=== PATIENT | male | born 2000 | race Caucasian/White ===

== ENCOUNTER 2021-08-22 18:43 | Emergency (ER) | payer BC ==
[2021-08-22] MEDS: Amoxicillin 500 MG Cap PO ONE (19:39)
== END 2021-08-22 19:43 | disposition home or self-care (01) ==
LOC: FB.ED 18:43
DX: K04.7 Periapical abscess without sinus (principal)
CPT/HCPCS: 99281; 99282; A9270-GY

== ENCOUNTER 2021-09-11 14:50 | Emergency (ER) | payer BC ==
[2021-09-11 16:00] LABS: STREP A BY PCR NOT DETECTED (NOT DETECT)
[2021-09-11 16:11] LABS: CORONAVIRUS COVID-19 NAA NEGATIVE (NEGATIVE)
[2021-09-11] MEDS ORDERED: Albuterol/Ipratropium 3.0-0.5 MG/3 ML Neb Soln NEB ONE (16:32)
[2021-09-11] MEDS ORDERED: Azithromycin 500 MG Tab PO ONE (17:11)
[2021-09-11] MEDS ORDERED: predniSONE 20 MG Tab PO ONE (17:11)
== END 2021-09-11 17:28 | disposition home or self-care (01) ==
LOC: FB.ED 14:50
DX: J45.41 Moderate persistent asthma with (acute) exacerbation (principal); Z20.822 Contact with and (suspected) exposure to COVID-19
CPT/HCPCS: 0240U; 87651-QW; 99282; 99283; A9270-GY; J7512; J7620